=== PATIENT | male | born 1955 | race Caucasian/White ===

== ENCOUNTER 2019-09-15 16:36 | Inpatient (IN) ==
[2019-09-15] MEDS ORDERED: Naloxone 0.4 MG/ML INJ IVP PRN (19:16)
[2019-09-15] MEDS ORDERED: Ondansetron 4 MG/2 ML VIAL IVP PRN (19:16)
[2019-09-15] MEDS ORDERED: 0.9 % Sodium Chloride 1,000 ML IVC SCH (19:30)
[2019-09-15 19:35] LABS: Basophils % 0.6 %; Eosinophils % 0.2 %; Hematocrit 45.8 % (37.5-50.1); Hemoglobin 16.4 g/dL (12.9-16.9); Immature Granulocytes % 0.4 % (0-4); Lymphocytes # 0.5 K/mcL (0.6-4.6); Lymphocytes % 8.8 %; Mean Corpuscular HGB Conc 35.8 g/dL (31.6-35.5); Mean Corpuscular Hemoglobin 37.9 pg (28.0-33.3); Mean Corpuscular Volume 105.8 fL (83.0-100.0); Mean Platelet Volume 8.6 fL (9.4-12.4); Monocytes # 0.3 K/mcL (0.0-1.3); Monocytes % 5.6 %; Neutrophils # 4.5 K/mcL (1.6-8.9); Platelet Count 159 K/mcL (140-400); Red Blood Count 4.33 M/mcL (4.19-5.50); Red Cell Distribution Width 12.2 % (11.5-14.5); Segmented Neutrophils % 84.4 %; White Blood Count 5.3 K/mcL (4.3-11.1)
[2019-09-15 19:58] LABS: INR 7.3; Prothrombin Time 82.6 Seconds (9.4-12.1)
[2019-09-15 20:08] LABS: Amylase 211 Units/L (29-103); Lipase 313 Units/L (11-82)
[2019-09-15 20:09] LABS: Alanine Aminotransferase 44 Units/L (7-52); Albumin 3.8 g/dL (3.5-5.7); Albumin/Globulin Ratio 1.3 (1.1-2.2); Alkaline Phosphatase 147 Units/L (34-104); Aspartate Amino Transferase 101 Units/L (13-39); BUN/Creatinine Ratio 5 (6-26); Bilirubin,Total 1.1 mg/dL (0.3-1.0); Blood Urea Nitrogen 4 mg/dL (8-23); Calcium 8.5 mg/dL (8.6-10.3); Carbon Dioxide 23 mEq/L (23-29); Chloride 101 mEq/L (98-107); Globulin 2.9 g/dL (2.4-3.5); Glucose 91 mg/dL (70-105); Osmolality,Calculated 280 (280-300); Potassium 4.1 mEq/L (3.5-5.1); Sodium 137 mEq/L (136-145); Total Protein 6.7 g/dL (6.4-8.9); eGFR For African Americans > 60 (> 60); eGFR For Non-African Americans > 60 (> 60)
[2019-09-15] MEDS ORDERED: *HR* LORazepam 2 MG/ML VIAL IVP PRN ×3 (21:17)
[2019-09-15 21:41] LABS: Ethanol < 10 mg/dL (Less than 10)
[2019-09-16 06:22] LABS: Basophils % 0.5 %; Eosinophils # 0.1 K/mcL (0.0-0.6); Eosinophils % 1.1 %; Hematocrit 39.7 % (37.5-50.1); Immature Granulocytes % 0.5 % (0-4); Lymphocytes # 0.8 K/mcL (0.6-4.6); Lymphocytes % 16.9 %; Mean Corpuscular HGB Conc 35.8 g/dL (31.6-35.5); Mean Corpuscular Hemoglobin 38.3 pg (28.0-33.3); Mean Platelet Volume 8.6 fL (9.4-12.4); Monocytes # 0.4 K/mcL (0.0-1.3); Monocytes % 8.8 %; Neutrophils # 3.2 K/mcL (1.6-8.9); Platelet Count 134 K/mcL (140-400); Red Blood Count 3.71 M/mcL (4.19-5.50); Red Cell Distribution Width 12.5 % (11.5-14.5); Segmented Neutrophils % 72.2 %; White Blood Count 4.4 K/mcL (4.3-11.1)
[2019-09-16 06:23] LABS: Hemoglobin 14.2 g/dL (12.9-16.9)
[2019-09-16 06:32] LABS: Activated Partial Thrombo Time 67.7 Seconds (26.0-36.0)
[2019-09-16 06:36] LABS: INR 5.8; Prothrombin Time 66.1 Seconds (9.4-12.1)
[2019-09-16 06:43] LABS: Alanine Aminotransferase 30 Units/L (7-52); Albumin 3.1 g/dL (3.5-5.7); Albumin/Globulin Ratio 1.3 (1.1-2.2); Alkaline Phosphatase 110 Units/L (34-104); Aspartate Amino Transferase 53 Units/L (13-39); BUN/Creatinine Ratio 7 (6-26); Bilirubin,Total 0.8 mg/dL (0.3-1.0); Blood Urea Nitrogen 5 mg/dL (8-23); Calcium 7.9 mg/dL (8.6-10.3); Carbon Dioxide 23 mEq/L (23-29); Chloride 102 mEq/L (98-107); Chol/HDL Ratio 1.7 (0-4.9); Globulin 2.4 g/dL (2.4-3.5); Glucose 78 mg/dL (70-105); Magnesium 1.7 mg/dL (1.6-2.6); Osmolality,Calculated 274 (280-300); Potassium 3.9 mEq/L (3.5-5.1); Sodium 134 mEq/L (136-145); Total Protein 5.5 g/dL (6.4-8.9); eGFR For African Americans > 60 (> 60); eGFR For Non-African Americans > 60 (> 60)
[2019-09-16] MEDS ORDERED: *HR* Heparin 5,000 UNIT/ML VIAL SQ SCH (07:30)
[2019-09-16] MEDS: 0.9 % Sodium Chloride 1,000 ML IVC SCH ×2 (08:17→16:40)
[2019-09-16] MEDS ORDERED: *HR* Phytonadione 5 MG TABLET PO ONE (08:57)
[2019-09-16 16:46] LABS: INR 3.8
[2019-09-16 16:53] LABS: Prothrombin Time 43.3 Seconds (9.4-12.1)
[2019-09-17 05:30] LABS: INR 1.8; Prothrombin Time 20.2 Seconds (9.4-12.1)
[2019-09-17 05:35] LABS: Basophils % 0.6 %; Eosinophils # 0.1 K/mcL (0.0-0.6); Eosinophils % 3.8 %; Hematocrit 36.9 % (37.5-50.1); Immature Granulocytes % 0.6 % (0-4); Lymphocytes % 30.6 %; Mean Corpuscular HGB Conc 34.1 g/dL (31.6-35.5); Mean Corpuscular Hemoglobin 37.6 pg (28.0-33.3); Mean Corpuscular Volume 110.1 fL (83.0-100.0); Mean Platelet Volume 8.6 fL (9.4-12.4); Monocytes # 0.3 K/mcL (0.0-1.3); Monocytes % 9.4 %; Neutrophils # 1.8 K/mcL (1.6-8.9); Platelet Count 110 K/mcL (140-400); Red Blood Count 3.35 M/mcL (4.19-5.50); White Blood Count 3.2 K/mcL (4.3-11.1)
[2019-09-17 05:44] LABS: Alanine Aminotransferase 21 Units/L (7-52); Albumin 2.8 g/dL (3.5-5.7); Albumin/Globulin Ratio 1.3 (1.1-2.2); Alkaline Phosphatase 82 Units/L (34-104); Aspartate Amino Transferase 31 Units/L (13-39); BUN/Creatinine Ratio 7 (6-26); Blood Urea Nitrogen 4 mg/dL (8-23); Calcium 7.8 mg/dL (8.6-10.3); Carbon Dioxide 24 mEq/L (23-29); Chloride 106 mEq/L (98-107); Globulin 2.1 g/dL (2.4-3.5); Glucose 89 mg/dL (70-105); Osmolality,Calculated 274 (280-300); Potassium 3.5 mEq/L (3.5-5.1); Sodium 134 mEq/L (136-145); Total Protein 4.9 g/dL (6.4-8.9); eGFR For African Americans > 60 (> 60); eGFR For Non-African Americans > 60 (> 60)
[2019-09-17 05:53] LABS: Hemoglobin 12.6 g/dL (12.9-16.9)
[2019-09-17 06:00] LABS: Platelet Estimate Slight Decrease (Normal)
[2019-09-17 06:58] VITALS: BP 133/78
== END 2019-09-17 11:40 | disposition home or self-care (01) | DRG 445 ==
LOC: 3ANU → SUATTDRO 18:04
PROVIDERS: ADMIT Internal Medicine; ATTEND Family Medicine